=== PATIENT | male | born 1975 | race Caucasian/White ===

== ENCOUNTER 2019-07-24 22:08 | Inpatient (IN) | payer BC ==
[~2019-07-24] VITALS: Ht 182.9 cm; Wt 113.4 kg
[2019-07-24 23:25] VITALS: BP 161/91
[2019-07-24] MEDS ORDERED: ONDANSETRON PF 4 MG/2 ML VIAL. IVP PRN (23:45)
[2019-07-24] MEDS: IV NORMAL SALINE 1000ML BAG 1,000 ML IV SCH (23:58)
[2019-07-25] MEDS: fentaNYL PF VIAL 100 MCG/2 ML VIAL IVP PRN ×2 (00:01→21:18)
[2019-07-25] MEDS ORDERED: MELO7.5T29 PO (00:45)
[2019-07-25] MEDS ORDERED: CYCL5TAB PO (00:46)
[2019-07-25] MEDS ORDERED: HYDROCODONE-IB1 EAC3 PO (00:47)
[2019-07-25] MEDS ORDERED: CIPR500T94 PO (00:48)
[2019-07-25] MEDS ORDERED: METR-34 PO (00:48)
[2019-07-25] MEDS ORDERED: HYDR-2765 PO (00:49)
[2019-07-25 03:00] VITALS: BP 120/64
[2019-07-25 05:10] LABS: BASO % 1 % (0-3); EOS # 0.5 x10^3/uL (0.0-0.7); EOS % 8 % (0-3); HEMATOCRIT 43.3 % (39.0-53.0); HEMOGLOBIN 14.5 g/dL (13.0-17.5); LYMPH # 1.4 x10^3/uL (1.0-4.8); LYMPH % 21 % (24-48); MEAN CORPUSCULAR HEMOGLOBIN 29 pg (25-35); MEAN CORPUSCULAR HGB CONC 33 g/dL (31-37); MEAN CORPUSCULAR VOLUME 88 fL (79-100); MONO # 0.5 x10^3/uL (0.0-1.1); MONO % 7 % (0-9); NEUT # 4.2 x10^3/uL (1.8-7.7); NEUT % 62 % (31-73); PLATELET COUNT 204 x10^3/uL (140-400); RED BLOOD COUNT 4.95 x10^6/uL (4.30-5.70); RED CELL DISTRIBUTION WIDTH 13.1 % (11.5-14.5); WHITE BLOOD COUNT 6.7 x10^3/uL (4.0-11.0)
[2019-07-25 05:19] LABS: CALCIUM 8.4 mg/dL (8.5-10.1); CREATININE 0.9 mg/dL (0.7-1.3); GFR 91.3; POTASSIUM 3.9 mmol/L (3.5-5.1)
[2019-07-25 07:00] VITALS: BP 125/69
--- NOTE | 2019-07-25 09:57 | HP ---
ADMIT DATE: 07/25/2019 HISTORY OF PRESENT ILLNESS: The patient is a 43-year-old male patient, who apparently was seen, who started complaining of right upper quadrant pain on Monday night and on Monday morning, he started having nausea and vomiting. He was seen in the Emergency Room of [facility] where he was evaluated. At the time, his white cell count was high at 15,300. He has had a CT scan of the abdomen and pelvis with IV contrast, which basically showed distention of small bowel loops through the distal ileum, most concerning for mild distal small bowel obstruction, although ileus could also be considered. Has multiple small nonobstructive left renal calculi, mild hepatomegaly with steatosis and small hypodense lesions within both kidneys, most are too small to characterize, but could represent cyst. He has also an abdominal ultrasound, which showed that his gallbladder is normal with no cholelithiasis or findings suggest acute cholecystitis. His liver length is 19.6 cm. Common bile duct measures 0.3 cm in diameter. Fatty infiltration of the liver diffusely is present. No intrahepatic biliary ductal dilatation and portal venous flow is normal. His right kidney measures 13 cm longitudinal. No right hydronephrosis. Proximal pancreas is normal. Distal pancreas is obscured by bowel gas. No right upper quadrant ascites. Inferior vena cava is poorly visualized. Apparently, the patient was discharged home on oral antibiotic, on ciprofloxacin, Flagyl as well as hydrocodone and ondansetron with instruction to come back if his symptoms continued and apparently the patient returned to the Emergency Room with continued complaint of abdominal pain. He has had 4 episodes of nausea and vomiting. He has also had diarrhea and has chills, but denied any fever. He was evaluated again. His white cell count is down to 8700; however, he has had an acute abdomen series, which showed the heart is normal in size, lungs are clear, no pneumothorax or pleural effusion, no subdiaphragmatic lucency to suggest large pneumoperitoneum, visualized bony thorax within normal limits. No abnormally dilated bowel loops or air fluid levels. Visualized bones are within normal limits and impression is the patient has no evidence of high-grade bowel obstruction; however, the patient continued to have nausea and vomiting, and therefore, the patient was transferred to [facility]. To continue the IV antibiotic, continue with IV fluids and antiemetic and consult the Surgical team. PAST MEDICAL HISTORY: Significant for nephrolithiasis. Apparently, this happened about 7-8 years ago; the stones passed on their own. He is known to have hypertension, although he is not taking any medication for that and he is known to have obstructive sleep apnea, but does not use his machine. PAST SURGICAL HISTORY: Significant for L4-L5 posterior spinal fusion. ALLERGIES: He has no known drug allergies. MEDICATIONS: He is currently on no medication at home according to him, although he was on ciprofloxacin 500 mg twice a day, Flagyl 500 mg 3 times a day, cyclobenzaprine 5 mg 3 times a day, meloxicam 7.5 mg daily, hydrocodone/APAP 7.5/325 one tablet every 6 hours, and ondansetron 4 mg every 6 hours. FAMILY HISTORY: He has 1 older sister, who is healthy. Father is alive at the age of 67 and has hypertension. Mother is alive at the age of 70 and has hypertension. SOCIAL HISTORY: He is , has 4 boys and 2 daughters. He continued to chew tobacco. He does not drink alcohol or use any recreational drugs. 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 REVIEW OF SYSTEMS: The patient denied any blurring of vision, cataract, glaucoma or macular degeneration. Denied any earache, tinnitus or sensorineural deafness. Denied any nosebleeds, stuffy nose or postnasal drip. Denied any sore throat, sore tongue, toothache, hoarseness of voice or difficulty swallowing. He did complain of nausea and vomiting as well as diarrhea, but denied any hematemesis, melena or hematochezia. Denied any dysuria, frequency or hematuria. Denied any chest pain, shortness of breath, orthopnea or paroxysmal nocturnal dyspnea. Denied any cough, phlegm or hemoptysis. PHYSICAL EXAMINATION: GENERAL: On arrival to the Emergency Room, he looked well and was clearly in no apparent respiratory distress. No pallor, jaundice, cyanosis or thyromegaly. No jugular venous distention. No lower limb edema. VITAL SIGNS: His heart rate was 83, blood pressure was 144/87, temperature was 97.7, respiratory rate was 18 and oxygen saturation was 97%. HEAD, EYES, EARS, NOSE AND THROAT: Showed normocephalic, atraumatic. NECK: Supple. HEART: Showed normal first and second heart sounds. No gallop or murmur. CHEST: Clear to auscultation. No crepitation or rhonchi. ABDOMEN: Distended, soft with tenderness mostly in the right upper quadrant and also along the right flank area. There is no guarding or rigidity. No organomegaly. All hernial orifice intact. Bowel sounds normal. NEUROLOGIC: He was awake, alert, responding appropriately. All cranial nerves intact. EXTREMITIES: He moves extremities without difficulty. He ambulates without assistance or assistive devices. LABORATORY DATA: As of yesterday morning showed that his white cell count came down from 15,000-8700, hemoglobin 14.6, hematocrit 42.6, MCV 87, and platelet count of 193,000. Serum sodium is 137, potassium 3.5, chloride 101, bicarbonate 28, anion gap of 8, BUN 16, creatinine 1. Estimated GFR was 80 mL per minute. His glucose was 95, calcium was 8.4. Total bilirubin, AST, ALT, alkaline phosphatase are normal. Total protein was 6.5, albumin was 3.6. Serum lipase is 138. ASSESSMENT AND PLAN: In summary, this is a 43-year-old male patient with either acute gastroenteritis given he has diarrhea, nausea, vomiting, abdominal pain, has leukocytosis and there is also suggestion that he might have small bowel obstruction. My plan is to arrange for him to repeat his CT scan this morning and consult the Surgical team and if necessary, the Infectious Disease. I would continue with ciprofloxacin and Flagyl. For now, continue with IV fluid and n.p.o. status and if the CT scan showed no evidence of any bowel obstruction, we will start him on a clear liquid diet and advance as tolerated. ALINE FRASER MD DR: ASHLY/herbert JOB#: [id number] / [id number]
[2019-07-25] MEDS: CIPROFLOXACIN 400MG PREMIX 200 ML IV SCH ×2 (10:21→21:17)
--- NOTE | 2019-07-25 10:32 | PDOC2 ---
FAUSTINO HATHAWAY HSE MANAGER 07/25/19 1031: CONSULT Date of Consult Date of Consult DATE: 07/25/19 TIME: 10:24 Reason for Consult Reason for Consult: abdominal pain Referring Physician Referring Physician: Dr Addison Identification/Chief Complaint Chief Complaint abdominal pain Source Source: Chart review, Patient History of Present Illness Reason for Visit: Reports nausea, emesis, diarrhea, RUQ since Monday. Seen in ER at [facility] twice. He did have some pizza yesterday and that worsened his pain. He does report multiple stools of diarrhea, yesterday occurring every hour. None today so far Imaging reviewed, normal GB, fatty liver, CT with sbo vs ileus Past Medical History Cardiovascular: HTN Past Surgical History Past Surgical History: No pertinent history Family History Family History: Other (noncontributory to current illness ) Social History No ALCOHOL: rare Drugs: None Lives: Alone Current Medications Current Medications Current Medications Ondansetron HCl (Zofran) 4 mg PRN Q4HRS PRN IVP NAUSEA/VOMITING 1ST CHOICE; Start 07/24/19 at 23:45 Fentanyl Citrate (Fentanyl 2ml Vial) 50 mcg PRN Q4HRS PRN IVP SEVERE PAIN 7-10 Last administered on 07/25/19at 00:01; Start 07/24/19 at 23:45 Sodium Chloride 1,000 ml @ 75 mls/hr [id number] IV Last administered on 07/24/19at 23:58; Start 07/25/19 at 00:00 Ciprofloxacin/ Dextrose 200 ml @ 200 mls/hr Q12HR IV Last administered on 07/25/19at 10:21; Start 07/25/19 at 10:00 Metronidazole 100 ml @ 100 mls/hr Q8HRS IV Last administered on 07/25/19at 10:21; Start 07/25/19 at 11:00 Active Scripts Active Reported Hydrocodone-Apap 7.5-325 (Hydrocodone Bit/Acetaminophen) 1 Tab Tablet 1 Tab PO PRN Q6HRS PRN Cipro (Ciprofloxacin Hcl) 500 Mg Tablet 1 Tab PO BID 7 Days Metronidazole 500 Mg Tablet 1 Tab PO TID 10 Days Hydrocodone-Ibuprofen 7.5-200 (Hydrocodone/Ibuprofen) 1 Each Tablet 1 Tab PO PRN Q6HRS PRN Cyclobenzaprine Hcl 5 Mg Tablet 1 Tab PO TID Meloxicam 7.5 Mg Tablet 1 Tab PO DAILY 30 Days Allergies Allergies: Coded Allergies: No Known Drug Allergies (Unverified , 07/24/19) ROS General: No: Chills, Other (fevers ) PSYCHOLOGICAL ROS: No: Anxiety, Depression Eyes: No Blurry vision, No Double vision HEENT: No: Heacaches, Sore Throat Hematological and Lymphatic: No: Bleeding Problems, Blood Clots Respiratory: No: Cough, Shortness of breath Cardiovascular: No Chest Pain, No Palpitations Gastrointestinal: Yes Other (see hpi) Genitourinary: No Dysuria, No Hematuria Musculoskeletal: No Joint Pain, No Muscle Pain Neurological: No Confusion, No Impaired Coord/balance Skin: No Pruritus, No Rash Physical Exam General: Alert, Oriented X3, Cooperative, No acute distress HEENT: PERRLA, Mucous membr. moist/pink Lungs: Clear to auscultation, Normal air movement Heart: Regular rate, Normal S1, Normal S2 Abdomen: Soft, Other (ttp upper abdomen ) Extremities: No clubbing, No cyanosis Skin: No rashes, No breakdown Neuro: Normal gait, Normal speech Psych/Mental Status: Mental status NL, Mood NL MUSCULOSKELETAL: No deformity, No swelling Vitals VITALS Vital Signs Date Time Temp Pulse Resp B/P (MAP) Pulse Ox O2 Delivery O2 Flow Rate FiO2 07/25/19 07:00 97.3 60 18 125/69 (87) 96 Room Air 97.3 Labs Labs Laboratory Tests Test 07/25/19 04:45 White Blood Count 6.7 x10^3/uL (4.0-11.0) Red Blood Count 4.95 x10^6/uL (4.30-5.70) Hemoglobin 14.5 g/dL (13.0-17.5) Hematocrit 43.3 % (39.0-53.0) Mean Corpuscular Volume 88 fL (79-100) Mean Corpuscular Hemoglobin 29 pg (25-35) Mean Corpuscular Hemoglobin Concent 33 g/dL (31-37) Red Cell Distribution Width 13.1 % (11.5-14.5) Platelet Count 204 x10^3/uL (140-400) Neutrophils (%) (Auto) 62 % (31-73) Lymphocytes (%) (Auto) 21 % (24-48) Monocytes (%) (Auto) 7 % (0-9) Eosinophils (%) (Auto) 8 % (0-3) Basophils (%) (Auto) 1 % (0-3) Neutrophils # (Auto) 4.2 x10^3/uL (1.8-7.7) Lymphocytes # (Auto) 1.4 x10^3/uL (1.0-4.8) Monocytes # (Auto) 0.5 x10^3/uL (0.0-1.1) Eosinophils # (Auto) 0.5 x10^3/uL (0.0-0.7) Basophils # (Auto) 0.0 x10^3/uL (0.0-0.2) Sodium Level 145 mmol/L (136-145) Potassium Level 3.9 mmol/L (3.5-5.1) Chloride Level 107 mmol/L (98-107) Carbon Dioxide Level 29 mmol/L (21-32) Anion Gap 9 (6-14) Blood Urea Nitrogen 13 mg/dL (8-26) Creatinine 0.9 mg/dL (0.7-1.3) Estimated GFR (Cockcroft-Gault) 91.3 Glucose Level 83 mg/dL (70-99) Calcium Level 8.4 mg/dL (8.5-10.1) Laboratory Tests Test 07/25/19 04:45 White Blood Count 6.7 x10^3/uL (4.0-11.0) Red Blood Count 4.95 x10^6/uL (4.30-5.70) Hemoglobin 14.5 g/dL (13.0-17.5) Hematocrit 43.3 % (39.0-53.0) Mean Corpuscular Volume 88 fL (79-100) Mean Corpuscular Hemoglobin 29 pg (25-35) Mean Corpuscular Hemoglobin Concent 33 g/dL (31-37) Red Cell Distribution Width 13.1 % (11.5-14.5) Platelet Count 204 x10^3/uL (140-400) Neutrophils (%) (Auto) 62 % (31-73) Lymphocytes (%) (Auto) 21 % (24-48) Monocytes (%) (Auto) 7 % (0-9) Eosinophils (%) (Auto) 8 % (0-3) Basophils (%) (Auto) 1 % (0-3) Neutrophils # (Auto) 4.2 x10^3/uL (1.8-7.7) Lymphocytes # (Auto) 1.4 x10^3/uL (1.0-4.8) Monocytes # (Auto) 0.5 x10^3/uL (0.0-1.1) Eosinophils # (Auto) 0.5 x10^3/uL (0.0-0.7) Basophils # (Auto) 0.0 x10^3/uL (0.0-0.2) Sodium Level 145 mmol/L (136-145) Potassium Level 3.9 mmol/L (3.5-5.1) Chloride Level 107 mmol/L (98-107) Carbon Dioxide Level 29 mmol/L (21-32) Anion Gap 9 (6-14) Blood Urea Nitrogen 13 mg/dL (8-26) Creatinine 0.9 mg/dL (0.7-1.3) Estimated GFR (Cockcroft-Gault) 91.3 Glucose Level 83 mg/dL (70-99) Calcium Level 8.4 mg/dL (8.5-10.1) Assessment/Plan Assessment/Plan abdominal pain, diarrhea seems c/w with gastroenteritis stool studies if diarrhea, he has been on abx x 2 days if continued pain could consider HIDA scan JASMINE LOOMIS MD 07/26/19 1150: CONSULT Assessment/Plan Assessment/Plan LATE ENTRY pt seen yesterday as he was being taken down for CT agree with above f/u on scan results Thanks for consult FAUSTINO HATHAWAY APRN Jul 25, 2019 10:31 JASMINE LOOMIS MD Jul 26, 2019 11:50
[2019-07-25] MEDS ORDERED: CONTRAST GIVEN. MC PRN (10:45)
[2019-07-25 11:00] VITALS: BP 132/74
[2019-07-25] MEDS ORDERED: IOHEXOL 240 MG/ML 50ML VIAL. PO ONE (11:00)
--- NOTE | 2019-07-25 12:12 | NUR ---
SW following for discharge planning. Chart reviewed, discussed with RN, pt is from home with and kids. Currently NPO, having a CT scan today. SW will continue to follow for any discharge planning needs.
[2019-07-25] MEDS: IV NORMAL SALINE 1000ML BAG 1,000 ML IV SCH ×2 (13:20→14:08)
[2019-07-25 15:00] VITALS: BP 139/67
[2019-07-25 19:30] VITALS: BP 127/58
[2019-07-25 23:23] VITALS: BP 120/67
[2019-07-26 03:25] VITALS: BP 122/64
[2019-07-26] MEDS: fentaNYL PF VIAL 100 MCG/2 ML VIAL IVP PRN (04:36)
--- NOTE | 2019-07-26 06:20 | RAD ---
PQRS Compliance statement: One or more of the following individualized dose reduction techniques were utilized for this examination: 1. Automated exposure control. 2. Adjustment of the mA and/or kV according to patient size. 3. Use of iterative reconstruction technique. Indication:Small bowel obstruction versus acute gastroenteritis. TECHNIQUE: CT abdomen and pelvis without IV contrast with multiplanar reformats. COMPARISON: None FINDINGS: Limited evaluation of solid abdominal and pelvic organs due to lack of IV contrast. Heart is normal in size. No pericardial or pleural effusion. Clear lung bases. Hepatic steatosis. Noncontrast appearance of the spleen, gallbladder, pancreas, adrenals within normal limits. Couple of punctate nonobstructing left renal stones. No enlarged retroperitoneal or pelvic adenopathy. No free pelvic fluid or ascites. Normal appendix. Distended but not dilated small bowel loops are seen. There is no abnormal bowel wall thickening. No pneumoperitoneum. Urinary bladder demonstrates no radiopaque stone. No suspicious bony lesion. IMPRESSION: 1. Scattered distended but not pathologically dilated loops of small bowel loops in the left hemiabdomen. Findings are not convincing enough for high-grade small bowel obstruction. Although developing small bowel obstruction is not ruled out. Consider follow-up KUB. 2. Hepatic steatosis. 3. Couple of nonobstructing left renal stones. Electronically signed by: Cuauhtemoc Finn DO (07/26/2019 6:16 AM) [facility]
[2019-07-26 07:00] VITALS: BP 134/74
--- NOTE | 2019-07-26 08:15 | PDOC ---
FAUSTINO HATHAWAY BASIN FINISH OPERATOR TIG WELDER 07/26/19 0815: SURGICAL PROGRESS NOTE Subjective feeling much better no n/v no further diarrhea, + flatus very hungry Vital Signs Vital Signs Date Time Temp Pulse Resp B/P (MAP) Pulse Ox O2 Delivery O2 Flow Rate FiO2 07/26/19 07:00 98.3 69 16 134/74 (94) 96 Room Air 98.3 I&O Intake and Output 07/26/19 07:00 Intake Total 2215 ml Output Total 500 ml Balance 1715 ml Intake Oral 940 ml IV Total 900 ml Other 375 ml Output Urine Total 500 ml # Voids 1 General: Alert, Oriented X3, Cooperative, No acute distress Abdomen: Normal bowel sounds, Soft, No tenderness Labs Laboratory Tests Test 07/25/19 04:45 White Blood Count 6.7 x10^3/uL (4.0-11.0) Red Blood Count 4.95 x10^6/uL (4.30-5.70) Hemoglobin 14.5 g/dL (13.0-17.5) Hematocrit 43.3 % (39.0-53.0) Mean Corpuscular Volume 88 fL (79-100) Mean Corpuscular Hemoglobin 29 pg (25-35) Mean Corpuscular Hemoglobin Concent 33 g/dL (31-37) Red Cell Distribution Width 13.1 % (11.5-14.5) Platelet Count 204 x10^3/uL (140-400) Neutrophils (%) (Auto) 62 % (31-73) Lymphocytes (%) (Auto) 21 % (24-48) Monocytes (%) (Auto) 7 % (0-9) Eosinophils (%) (Auto) 8 % (0-3) Basophils (%) (Auto) 1 % (0-3) Neutrophils # (Auto) 4.2 x10^3/uL (1.8-7.7) Lymphocytes # (Auto) 1.4 x10^3/uL (1.0-4.8) Monocytes # (Auto) 0.5 x10^3/uL (0.0-1.1) Eosinophils # (Auto) 0.5 x10^3/uL (0.0-0.7) Basophils # (Auto) 0.0 x10^3/uL (0.0-0.2) Sodium Level 145 mmol/L (136-145) Potassium Level 3.9 mmol/L (3.5-5.1) Chloride Level 107 mmol/L (98-107) Carbon Dioxide Level 29 mmol/L (21-32) Anion Gap 9 (6-14) Blood Urea Nitrogen 13 mg/dL (8-26) Creatinine 0.9 mg/dL (0.7-1.3) Estimated GFR (Cockcroft-Gault) 91.3 Glucose Level 83 mg/dL (70-99) Calcium Level 8.4 mg/dL (8.5-10.1) Assessment/Plan gastroenteritis trial clears JASMINE LOOMIS MD 07/26/19 1154: SURGICAL PROGRESS NOTE Assessment/Plan pt seen and examined tolerating clears would like more to eat will advance diet as tolerated no surgical needs will sign off please call if needed Thanks FAUSTINO HATHAWAY APRN Jul 26, 2019 08:15 JASMINE LOOMIS MD Jul 26, 2019 11:54
[2019-07-26] MEDS: CIPROFLOXACIN 400MG PREMIX 200 ML IV SCH (09:49)
[2019-07-26 11:00] VITALS: BP 154/82
--- NOTE | 2019-07-26 11:16 | NUR ---
SW following for discharge planning. Discussed with RN, surgery consulted for SBO. RN advised no SW needs at this time. SW will continue to follow.
[2019-07-26] MEDS ORDERED: metroNIDAZOLE 500 MG TABLET PO SCH (14:00)
[2019-07-26 15:00] VITALS: BP 141/78
[2019-07-26] MEDS: IV NORMAL SALINE 1000ML BAG 1,000 ML IV SCH (15:14)
--- NOTE | 2019-07-26 16:25 | NUR ---
Discharge Note: TEAGAN AYALA II [address] [place] [address] Discharge instructions and discharge home medications reviewed with Patient and a copy given. All questions have been answered and understanding verbalized. The following instructions and handouts were given: diet, activity, medication list and follow up instructions provided to patient. Discontinued lines and drains: Peripheral IV discontinued and catheter intact. Patient discharged to Home or Self Care with Family Member via [facility]
[2019-07-26] MEDS ORDERED: LACTOBACILLUS RHAMNOSUS GG 1 CAPSULE. PO SCH (21:00)
--- NOTE | 2019-07-26 22:30 | PN ---
DATE: 07/26/2019 SUBJECTIVE: The patient is resting flat in bed, in no apparent distress. On questioning him, he denied any further episodes of nausea or vomiting. No diarrhea. His abdominal pain, he said, is tolerable. His CT scan of the abdomen and pelvis with oral contrast showed that the patient has scattered, distended, but not pathologically dilated small bowel loops in the abdomen. Findings are not convincing enough for high-grade small bowel obstruction, although developing small bowel obstruction is not ruled out. He has also hepatic steatosis and a couple of nonobstructing left renal stones. PHYSICAL EXAMINATION: GENERAL: On examining him, he looked well and was clearly in no apparent respiratory distress. No pallor, jaundice, cyanosis or thyromegaly. No jugular venous distention. No lower limb edema. VITAL SIGNS: His heart rate was 69, blood pressure was 134/74, temperature was 98.3, respiratory rate was 16, and oxygen saturation was 96%. HEAD, EYES, EARS, NOSE AND THROAT: Showed normocephalic, atraumatic. NECK: Supple. HEART: Showed normal first and second heart sounds with no gallop, rub or murmur. CHEST: Clear to auscultation. No crepitation or rhonchi. ABDOMEN: Distended, soft, nontender. Bowel sounds are normal. NEUROLOGIC: He was awake, alert, responding appropriately. Cranial nerves intact. He moves extremities. LABORATORY DATA: No lab work today. His intake was 2215, output was 500. PLAN: To continue IV fluid, continue to start him on a clear liquid, advance as tolerated. ALINE FRASER MD DR: ASHLY/herbert JOB#: [id number] / [id number]
== END 2019-07-26 15:45 | disposition home or self-care (01) | DRG 392 ==
LOC: 4 NORTH 23:28
PROVIDERS: ADMIT Internal Medicine; ATTEND Internal Medicine
DX: K52.9 Noninfective gastroenteritis and colitis, unspecified (principal); K56.609 Unspecified intestinal obstruction, unspecified as to partial versus complete obstruction; N20.0 Calculus of kidney; K76.0 Fatty (change of) liver, not elsewhere classified; Z87.442 Personal history of urinary calculi; I10 Essential (primary) hypertension; G47.33 Obstructive sleep apnea (adult) (pediatric); Z98.1 Arthrodesis status; Z82.49 Family history of ischemic heart disease and other diseases of the circulatory system; Z72.0 Tobacco use
CPT/HCPCS: 36415; 74176; 80048; 85025; J0744; J3010; J3490; J7030; Q9966; G0378